=== PATIENT | male | born 1990 | race Caucasian/White ===

== ENCOUNTER 2018-03-14 07:20 | Day surgery (SDC) | payer OTHER ==
[~2018-03-14] VITALS: Ht 180.3 cm; Wt 77.1 kg
[~2018-03-14 07:20] MED LIST: CLINDAMYCIN 900MG PREMIX 50 ML IV ONE; EPINEPHrine VIAL 30 MG/30 ML VIAL ONE; HYDROmorphone 2 MG/ML VIAL IV PRN; LIDOCAINE 1% PF 2 ML VIAL. ID PRN; ONDANSETRON PF 4 MG/2 ML VIAL. IV PRN; PROCHLORPERAZINE 10 MG/2 ML VIAL. IV PRN; fentaNYL PF VIAL 100 MCG/2 ML VIAL IV PRN
[2018-03-14] MEDS: IV RINGERS,LACTATED 1000ML 1,000 ML IV SCH ×2 (08:00→10:51)
[2018-03-14] MEDS ORDERED: MIDAZOLAM HCL/PF 2 MG/2 ML VIAL. ONE ×2 (08:09→08:11)
[2018-03-14] MEDS ORDERED: ROPIVacaine 0.5% PF 20 ML VIAL. ONE (08:10)
[2018-03-14] MEDS ORDERED: fentaNYL PF VIAL 100 MCG/2 ML VIAL ONE (08:11)
[2018-03-14] MEDS ORDERED: PROPOFOL 20 ML IV ONE (08:11)
[2018-03-14] MEDS ORDERED: ROCURONIUM 50 MG/5 ML VIAL. ONE (08:11)
[2018-03-14] MEDS ORDERED: ONDANSETRON PF 4 MG/2 ML VIAL. ONE (09:56)
[2018-03-14] MEDS ORDERED: DEXAMETHASONE SOD PHOS 20 MG/5 ML VIAL. ONE (09:56)
[2018-03-14] MEDS ORDERED: SEVOFLURANE 31 TO 60 MINUTES. IH ONE (10:05)
--- NOTE | 2018-03-14 10:22 | DISCH ---
DISCHARGE INSTRUCTIONS Condition on Discharge Condition on Discharge: Stable Activity After Discharge Activity Instructions for Disc: Activity as tolerated Weight Bearing Status after Di: Full weight bearing Diet after Discharge Diet after Discharge: Regular Wound Incision Care Wound/Incision Care: Ice to area for comfort, Change dressing (dressing in 2 days may then shower no soaking until sutures removed) Community/Resources/Services Services at Discharge: PT EVALUATE & TREAT (immediate passive active range of motion and strengthening as tolerated with no restrictions) Contacting the DR. after DC Call your doctor for: Concerns you may have Follow-Up Follow up with: Kayley 7-10 days Treatment/Equipment after DC Adaptive Equipment Issued: None DOLLY PIEDRA MD Mar 14, 2018 10:22
[2018-03-14] MEDS ORDERED: OXYC-327 PO (10:23)
[2018-03-14] MEDS: fentaNYL PF VIAL 100 MCG/2 ML VIAL IV PRN ×2 (10:46→11:14)
[2018-03-14] MEDS: MORPHINE SULFATE 2 MG/ML VIAL. IV PRN ×2 (10:46→12:15)
[2018-03-14] MEDS ORDERED: KETOROLAC 30 MG/ML VIAL. IV ONE (11:15)
[2018-03-14] MEDS ORDERED: oxyCODONE/APAP 7.5/325 1 TAB TABLET PO ONE (11:30)
[2018-03-14 12:20] VITALS: BP 104/59
--- NOTE | 2018-03-14 12:31 | PDOC4 ---
Operative Note Operative Note Date of surgery: 03/14/2018 Preoperative diagnosis: Superior labral tear Postoperative diagnosis: Partial-thickness subscapularis fraying at insertion intact labrum and biceps tendon, subacromial bursitis Operative procedure: Right shoulder arthroscopy with debridement partial thickness subscapularis fraying and subacromial bursa. Surgeon: Kayley Assist: Damien Anesthesia: Gen. plus scalene block Estimated blood loss: 10 mL Complications: None Operative indications: Percy is a 27-year-old male that was injured at work in [facility]. 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. He appears to on MRI have a superior labral tear and clinically has significant superior labral and biceps irritation signs on examination. Since he is not responsive to physical therapy I talked to them about evaluation arthroscopically and possible repair versus biceps tenodesis pending the condition and addressing any other pathology that is evident. We talked about the risks benefits postoperative course of the procedure including the possibility of infection nerve or blood vessel damage medical or other anesthetic complications among others all his questions were answered consent was obtained and he agrees to proceed with surgical evaluation and treatment. Operative text: Patient was identified procedure verified patient placed in the supine position on the operating table. After adequate amounts of general endotracheal anesthesia plus a pre-existing scalene block were obtained he was placed in the decubitus position right side up all bony prominences were well- padded and the right shoulder was examined under anesthesia found to have full range of motion and no instability. The right shoulder was then prepped and draped in standard sterile fashion placed in the arthroscopic arm lynn with a total of 10 pounds of traction. After timeout was performed patient procedure identified and verified a standard posterior portal was established glenohumeral joint was entered without difficulty an anterior portal established using spinal needle localization and the shoulder joint was systematically examined. Superior labrum was noted to be intact in its appearance with no evidence of SLAP tear or any type of separation. The biceps tendon and anchor was noted to be intact with no sign of subluxation fraying or other abnormality. He did have some fraying of the very superior aspect of the subscapularis insertion but the overlying tendon sheath of the biceps was noted to be intact and there was no subluxation noted through range of motion. The remainder the rotator cuff insertion was noted to be intact normal bare area of the humerus normal capsule ligament structures and no fraying or separation of the remaining labrum glenohumeral joint was well preserved. Subacromial space was then entered there was some mild irritation on the coracoacromial ligament at its junction with the anterior acromion but he had significant space present and no significant anterior acromial spurring. The acromioclavicular joint was well preserved and was not exposed subacromial bursa was debrided to allow visualization of the rotator cuff which was noted to be intact in all degrees of internal/external rotation. Biceps tendon sheath was visualized from the subacromial space is well and again noted to be intact. The arthroscope was withdrawn joint was drained of arthroscopic fluid portals were closed with nylon suture sterile dressings were applied patient was returned recovery room in stable condition having tolerated procedure well DOLLY PIEDRA MD Mar 14, 2018 12:31
== END 2018-03-14 12:36 | disposition home or self-care (01) ==
LOC: SURG 07:20
PROVIDERS: ATTEND Orthopaedic Surgery
DX: S46.011A Strain of muscle(s) and tendon(s) of the rotator cuff of right shoulder, initial encounter (principal); M75.51 Bursitis of right shoulder; F90.0 Attention-deficit hyperactivity disorder, predominantly inattentive type; K50.90 Crohn's disease, unspecified, without complications; Z72.89 Other problems related to lifestyle; Z79.899 Other long term (current) drug therapy; Z88.2 Allergy status to sulfonamides; Z88.1 Allergy status to other antibiotic agents; X58.XXXA Exposure to other specified factors, initial encounter; Y93.89 Activity, other specified; Y92.89 Other specified places as the place of occurrence of the external cause; Y99.8 Other external cause status
CPT/HCPCS: 29822; C1782; J0171; J0780; J1100; J1885; J2250; J2270; J2405; J2704; J2795; J3010; J3490